=== PATIENT | female | born 1985 | race Caucasian/White ===

== ENCOUNTER 2022-05-23 09:08 | Outpatient (CLI) | payer OTHER, SELFPAY ==
[2022-05-23 12:13] LABS: Albumin* 4.3 g/dL (3.3-5.0); Chloride* 102 mmol/L (96-114); Potassium* 4.4 mmol/L (3.6-5.1); Sodium* 139 mmol/L (135-149)
[2022-05-23 12:15] LABS: Carbon Dioxide* 30 mmol/L (20-32); Cholesterol* 160 mg/dL (90-199); Creatinine* 0.8 mg/dL (0.5-1.5); Estimated Glomerular Filt Rate 98 ml/min
[2022-05-23 12:16] LABS: Alanine Aminotransferase* 16 U/L (4-35); Alkaline Phosphatase* 47 U/L (40-150); Aspartate Amino Transferase* 20 U/L (12-35); Bilirubin Total* 0.5 mg/dL (0.1-1.5); Blood Urea Nitrogen* 13 mg/dL (5-24); Calcium* 9.7 mg/dL (8.4-10.6); Glucose* 64 mg/dL (60-115); HDL Cholesterol* 61 mg/dL (>=50); LDL Cholesterol Calculated 83 mg/dL (<100); Total Protein* 6.8 g/dL (6.0-8.3); Triglycerides* 82 mg/dL (40-149)
[2022-05-23 12:34] LABS: Vitamin D 25 Hydroxy* 55 ng/mL (30-80)
[2022-05-23 12:52] LABS: Ferritin* 22.4 ng/mL (6.24-137.0)
[2022-05-24 03:04] LABS: Vitamin B12* 635 pg/mL (243-894)
== END 2022-05-23 09:09 | disposition home or self-care (01) ==
PROVIDERS: PCP Family Medicine; Visit Provider Family Medicine
DX: Z01.419 Encounter for gynecological examination (general) (routine) without abnormal findings (principal); R53.83 Other fatigue; F41.1 Generalized anxiety disorder; Z86.2 Personal history of diseases of the blood and blood-forming organs and certain disorders involving the immune mechanism; Z86.59 Personal history of other mental and behavioral disorders; Z13.6 Encounter for screening for cardiovascular disorders
CPT/HCPCS: 80053; 80061; 82306; 82607; 82728; 84443

== ENCOUNTER 2023-03-14 13:53 | Outpatient (CLI) | payer OTHER, SELFPAY | END 2023-03-14 13:54 | disposition home or self-care (01) | LOC: NFLDREF 03-20 07:47 | PROVIDERS: PCP Family Medicine; Referring Provider Family Medicine; Visit Provider Family Medicine | DX: R19.7 Diarrhea, unspecified (principal) | CPT/HCPCS: 87177; 87209; 87505 ==

== ENCOUNTER 2023-08-18 08:15 | Outpatient (CLI) | payer OTHER, SELFPAY | END 2023-08-18 08:16 | disposition home or self-care (01) | LOC: NFLDREF 08-19 16:16 | PROVIDERS: PCP Family Medicine; Referring Provider Family Medicine; Visit Provider Family Medicine | DX: Z01.419 Encounter for gynecological examination (general) (routine) without abnormal findings (principal); Z86.2 Personal history of diseases of the blood and blood-forming organs and certain disorders involving the immune mechanism; Z13.6 Encounter for screening for cardiovascular disorders | CPT/HCPCS: 80053; 80061; 82728 ==

== ENCOUNTER 2023-10-03 07:37 | Outpatient (CLI) | payer OTHER, SELFPAY ==
--- OUTSIDE RECORDS SUMMARY | 2023-10-03 07:39 | XMS_ITS | Encounter Summary ---
Author Name Unknown Organization [facility] Address [address] [address] Care Team Providers Care Linotype Worker Name Role Phone Janis Beltre MD Primary Care Provider Reason for Visit * Reason Comments Ear Pain Better today but sti ll present. Sore Throat Headache Feels feverish but h asn't registered a fever. Chills. Some coughing. Not much of a runny nose either. Symptoms started 07/31 Encounter Details Date Type Department Care Team Description 08/04/2023 9:30 AM WRECKER DRIVER Office Visit [facility] [address] [place] [id number] Bernie Harper, PAAndreC [address] [place] [id number] Pharyngitis, unspecified etiology (Primary Dx); Acute otitis media, right Social History Tobacco Use Types Packs/Day Years Used Date Smoking Tobacco: Never Smokeless Tobacco: Never Alcohol Use Standard Drinks/Week Comments No 0 (1 standard drink = 0.6 oz pur e alcohol) PHQ-2 Answer Date Recorded PHQ-2 Score 1 09/18/2022 Sex and Gender Information Value Date Recorded Sex Assigned at Not on file Gender Identity Not on file Sexual Orientation Not on file documented as of this encounter Last Filed Vital Signs Vital Sign Reading Time Taken Comments Blood Pressure 92/64 08/04/2023 9:24 AM WRECKER DRIVER Pulse 53 08/04/2023 9:24 AM WRECKER DRIVER Temperature 36.7 ??C (98.1 ??F) 08/04/2023 9:16 AM CS T Respiratory Rate - - Oxygen Saturation 100% 08/04/2023 9:16 AM WRECKER DRIVER Inhaled Oxygen Concentration - - Weight 62.6 kg (138 lb) 08/04/2023 9:26 AM WRECKER DRIVER Height - - Body Mass Index 20.09 02/27/2022 4:31 PM CDT documented in this encounter Progress Notes * Bernie Harper PA-C - 08/04/2023 9:30 AM CST Clinic Visit SUBJECTIVE: CC: Chief Complaint Patient presents with Ear Pain Better today but still present. Sore Throat Headache Feels feverish but hasn't registered a fever. Chills. Some coughing. Not much of a runny nose either. Symptoms started 07/31 History of Present Illness: Michelle is here on day 5 of URI sxs. No temps but has felt feverish. Worse sxs are ST, headache, fatigue, chills. ST is relatively unchanged but feels the best today as it has during the illness. Has minimal congestion, no significant postnasal drainage. Had significant right ear pain last night but this has improved today. Home COVID negative yesterday. No known strep/COVID exposure. Review of Systems: A complete ROS was reviewed and found to be negative except as noted above. OBJECTIVE: Vital Signs: BP 92/64 (BP Location: Left Arm, BP Cuff Size: Regular - Long) Pulse (!) 53 Temp 98.1 ??F (36.7 ??C) (Oral) Wt 138 lb (62.6 kg) SpO2 100% BMI 20.09 kg/m?? General: pleasant in NAD. HEENT:PERRLA, EOM intact. Left TM and canal are clear. Right canal is clear. Right canal is erythematous. Oropharynx is clear. Neck: Supple, no lymphadenopathy or thyromegaly Lungs: clear to auscultation bilaterally with no crackles or wheezing. CV:RRR, no murmurs, rubs or gallops. Skin: Warm and dry without lesions. Psych:well dressed and groomed, thoughts are linear, affect is normal. Labs: Cinthya was seen today for ear pain, sore throat and headache. Diagnoses and all orders for this visit: Pharyngitis, unspecified etiology - STREP GROUP A, Molecular Detection-Collect Now in current encounter - 2019 Novel Coronavirus (COVID-19); Future - 2019 Novel Coronavirus (COVID-19) Acute otitis media, right Other orders - amoxicillin-clavulanate (AUGMENTIN) 875-125 mg per tablet; Take 1 Tablet by mouth two times a dayfor 7 days. Swabs done as above. Did discuss exam findings with erythematous right TM. Given her pain is bettertoday she is going to hold off on antibiotics but I did print a prescription for Augmentin in the event things would worsen. She could then fill the prescription. She will follow-up if anything wouldworsen. This note was created using voice recognition software and may contain typographical errors. *SH~[id number]~SOAP1 KER DRIVER documented in this encounter Plan of Treatment Upcoming Encounters Date Type Department Care Team Description 10/21/2023 10:30 AM WRECKER DRIVER Appointment [facility] Neurology [address] [place] [address] Theodora Contreras, LEAD MACHINIST, HOSTESS HOST [address] [place], [place] [id number] documented as of this encounter Procedures Procedure Name Priority Date/Time Associated Diagnosis Comments STREP GROUP A, MOLECULAR DETECTION Waiting 08/04/2023 10:03 AM WRECKER DRIVER Pharyngitis, unspecified etiology 2019 NOVEL CORONAVIRUS Routine 08/04/2023 10:03 AM WRECKER DRIVER Pharyngitis, unspecified etiology documented in this encounter Results * 2019 Novel Coronavirus (COVID-19) (08/04/2023 10:03 AM WRECKER DRIVER) COVID-19 Interpretation Not Detected Not Detected 08/05/2023 2:51 AM WRECKER DRIVER [facility] Source Nares, left and right 08/05/2023 2:51 AM [facility] Swab (Source Required) Non-blood Collection / Unknown 08/04/2023 10:03 AM WRECKER DRIVER 08/04/2023 10:52 AM WRECKER DRIVER Narrative [facility] - 08/05/2023 2:51 AM WRECKER DRIVER Test performed by Electric Crane Operator Mediated Amplification. TMA has been shown to be equivalent to commercial real-time PCR tests. This test has been authorized by the FDA under Emergency Use Authorization (EUA) for use by authorized laboratories. Bernie Harper PA-C LAB_1 Performing Organization Address City/[facility]/ZIP Co de Phone Number [facility] [address] [address] [phone] * STREP GROUP A, Molecular Detection-Collect Now in current encounter (08/04/2023 10:03 AM WRECKER DRIVER) [facility] Group A Strep Not Detected Not Detected 08/04/2023 11:27 AM WRECKER DRIVER [facility] Comment:Methodology: Qualita tive real-time PCR assay Swab (Source Required) THROAT SWAB / Unknown Non-blood Collection / Unknown 08/04/2023 10:03 AM WRECKER DRIVER 08/04/2023 10:52 AM WRECKER DRIVER Bernie Harper PA-C LAB_1 Performing Organization Address City/[facility]/ZIP Co de Phone Number [facility]) [address] [place] [address], [facility] [phone] documented in this encounter Visit Diagnoses Diagnosis Pharyngitis, unspecified etiology- Primary Acute otitis media, right Unspecified otitis media documented in this encounter Care Teams Linotype Worker Relationship Specialty Start Date End Date Janis Beltre MD [address] [place] [address] PCP - General Family Practice 09/19/22 documented as of this encounter
--- OUTSIDE RECORDS SUMMARY | 2023-10-03 07:39 | XMS_ITS | Encounter Summary ---
Author Name Unknown Organization [facility] Address [address], [place] [address] Care Team Providers Care Board Mixer Tender Name Role Phone Janis Beltre MD Primary Care Provider Reason for Visit * Reason Comments EAR,PLUGGED Encounter Details Date Type Department Care Team Description 08/11/2023 Nurse Triage [facility] Nurse Line [address] [place] [address] Janis Beltre MD [address] [place], [place] [phone] EAR,PLUGGED Social History Tobacco Use Types Packs/Day Years [...] on file documented as of this encounter Nursing Notes * Britt Blackwell RN - 08/11/2023 7:52 PM CST Spoke with pt who states she was seen in clinic for ear pain and cold symptoms, completed antibiotic treatment for an ear infection, pt continue to have congestion in the ear and is having a hard time hearing from the ear. Care advise given per protocol, pt verbalized understanding. Problem list reviewed as related to this call. Reason for Disposition Ear congestion present > 48 hours Protocols used: Ear - [id number] ORACLE DEVELOPER documented in this encounter Plan of Treatment Upcoming Encounters Date Type Department Care Team Description 10/21/2023 10:30 AM JAVA ORACLE DEVELOPER Appointment [facility] Neurology [address] [place], [place] [phone] Theodora Contreras, VACUUM APPLICATOR OPERATOR, BOILER REPAIR SUPERVISOR [address] [place] [address] documented as of this encounter Visit Diagnoses Not on filedocumented in this encounter Care Teams Board Mixer Tender Relationship Specialty Start Date End Date Janis Beltre MD [address] [place] [address] PCP - General Family Practice 09/19/22 documented as of this encounter
--- OUTSIDE RECORDS SUMMARY | 2023-10-03 07:39 | XMS_ITS | Encounter Summary ---
Author Name Unknown Organization [facility] Address [address] [place] [address] Care Team Providers Care Chief Librarian Music Department Name Role Phone Janis Beltre MD Primary Care Provider Reason for Visit * Reason Comments Ear Pain Encounter Details Date Type Department Care Team Description 08/03/2023 Nurse Triage [facility] [address] [place], [place] [phone] Unassigned, Provider [address] [place] [address] Ear Pain Social History Tobacco Use Types Packs/Day Years [...] as of this encounter Nursing Notes * Marylou Wilder RN - 08/03/2023 4:08 PM CST Verified patient identity: Yes Situation/Background (brief explanation of current symptoms/situation): Michelle states she wants to know if she could go in to be seen. States she has started to have ear pain and read that if you develop ear pain with uri symptoms that you should be seen. She has ear pain ,sore throat, she has had chills, feels feverish , no fever and low grade headache . Nose not runny, but is a little stuffy. Sore throat kind of at the top and last night felt ear needed to pop, not bad today , but ringing and kind of hurts when she hiccups. She is able to hear from the ear and hearing is diminshed.No drainagefrom ear. She denies difficulty breathing, has a mild cough. Michelle states home covid test has been ne gative. Reviewed with patient pertinent medical history (as it related to the call): Yes Reviewed with patient pertinent medications (as they relate to call): Yes Reviewed with patient pertinent allergies (as they relate to call): Yes Reason for Disposition Earache Answer Assessment - Initial Assessment Questions 1. DESCRIPTION: What type of hearing problem are you having? Describe it for me. (e.g., complete hearing loss, partial loss) Ear pain, diminished hearing 2. LOCATION: One or both ears? If one, ask: Which ear? One ear 3. SEVERITY: Can you hear anything? If Yes, ask: What can you hear? (e.g., ticking watch, whisper, talking) - MILD: Difficulty hearing soft speech, quiet library sounds, or speech from a distance or over background noise. - MODERATE: Difficulty hearing normal speech even at closed distances. - SEVERE: Unable to hear most normal conversation and talking; only able to hear loud sounds such as an alarm clock. 4. ONSET: When did this begin? Did it start suddenly or come on gradually? yesterday 5. PATTERN: Does this come and go, or has it been constant since it started? 6. PAIN: Is there any pain in your ear(s)? (Scale 1-10; or mild, moderate, severe) - NONE (0): no pain - MILD (1-3): doesn't interfere with normal activities - MODERATE (4-7): interferes with normal activities or awakens from sleep - SEVERE (8-10): excruciating pain, unable to do any normal activities moderate 7. CAUSE: What do you think is causing this hearing problem? 8. OTHER SYMPTOMS: Do you have any other symptoms? (e.g., dizziness, ringing in ears) Ringing in ears, stuffy nose, sore throat 9. : Is there any chance you are ? When was your last menstrual period? Answer Assessment - Initial Assessment Questions 1. COVID-19 DIAGNOSIS: How do you know that you have COVID? (e.g., positive lab test or self-test, diagnosed by doctor or ELECTRONIC GAMING DEVICE SUPERVISOR/PA, symptoms after exposure). Home test negative 2. COVID-19 EXPOSURE: Was there any known exposure to COVID before the symptoms began? [facility] Definition of close contact: within 6 feet (2 meters) for a total of 15 minutes or more over a 24-hour period. None known 3. ONSET: When did the COVID-19 symptoms start? 4 days ago 4. WORST SYMPTOM: What is your worst symptom? (e.g., cough, fever, shortness of breath, muscle aches) Stuffy nose, sore throat and ear pain 5. COUGH: Do you have a cough? If Yes, ask: How bad is the cough? mild 6. FEVER: Do you have a fever? If Yes, ask: What is your temperature, how was it measured, and when did it start? Denies fever, has had chills 7. RESPIRATORY STATUS: Describe your breathing? (e.g., normal; shortness of breath, wheezing, unable to speak) No difficulty breathing 8. [id number]: Are you getting better, staying the same or getting worse compared to yesterday? If getting worse, ask, In what way? 9. OTHER SYMPTOMS: Do you have any other symptoms? (e.g., chills, fatigue, headache, loss of smell or taste, muscle pain, sore throat) Headache, sore throat, ear pain with diminished hearing 10. HIGH RISK DISEASE: Do you have any chronic medical problems? (e.g., asthma, heart or lung disease, weak immune system, obesity, etc.) no 11. VACCINE: Have you had the COVID-19 vaccine? If Yes, ask: Which one, how many shots, when didyou get it? 12. : Is there any chance you are ? When was your last menstrual period? 13. O2 SATURATION MONITOR: Do you use an oxygen saturation monitor (pulse oximeter) at home? If Yes, ask What is your reading (oxygen level) today? What is your usual oxygen saturation reading?(e.g., 95%) Protocols used: Coronavirus (COVID-19) Diagnosed or [id number], Hearing Loss or [id number] LER * Zraa Armando - 08/03/2023 4:06 PM CST Verified patient identity using three identifiers: Yes Caller's relationship to patient: Self, Do you have a provider/clinic where you are seen for this? [facility] [place]/Gi/Gisele/Terry Are you calling about a /POOL CLEANER related concern? No Symptoms Describe the reason for call/symptoms (include location and duration if applicable): feels feverish- sore throat - ear pain - congestion - headache Plan:The current callback time to speak with a nurse is 60. If your symptoms change or worsen, or if you have not received a call back in the stated timeframe, please call us back LER documented in this encounter Plan of Treatment Upcoming Encounters Date Type Department Care Team Description 10/21/2023 10:30 AM RUFFLER Appointment [facility] Neurology [address] [place] [address] Theodora Contreras, GAMBLING FLOOR SUPERVISOR, CONSULTING DATABASE ADMINISTRATOR [address] [place] [address] documented as of this encounter Visit Diagnoses Not on filedocumented in this encounter Care Teams Chief Librarian Music Department Relationship Specialty Start Date End Date Janis Beltre MD [address] [place] [address] PCP - General Family Practice 09/19/22 documented as of this encounter
--- OUTSIDE RECORDS SUMMARY | 2023-10-03 07:39 | XMS_ITS | Encounter Summary ---
Author Name Unknown Organization [facility] Address [address], [place] [address] Care Team Providers Care Principal Statistical Programmer Name Role Phone Janis Beltre MD Primary Care Provider Reason for Visit * Reason Comments EAR,PLUGGED R Encounter Details Date Type Department Care Team Description 08/12/2023 3:00 PM PHYSICAL THERAPIST ASSISTANT Office Visit [facility] Medicine [facility] [place], [place] [id number] Jah Alonzo, PACarlos [address] [place] [address] Recurrent acute suppurative otitis media of right ear without spontaneous rupture of tympanic membrane (Primary Dx) Social History Tobacco Use Types Packs/Day Years [...] Sign Reading Time Taken Comments Blood Pressure 93/60 08/12/2023 3:04 PM PHYSICAL THERAPIST ASSISTANT Pulse - - Temperature - - Respiratory Rate - - Oxygen Saturation - - Inhaled Oxygen Concentration - - Weight 63.5 kg (140 lb) 08/12/2023 3:04 PM PHYSICAL THERAPIST ASSISTANT Height 177.8 cm (5' 10) 08/12/2023 3:04 PM PHYSICAL THERAPIST ASSISTANT Body Mass Index 20.09 08/12/2023 3:04 PM PHYSICAL THERAPIST ASSISTANT documented in this encounter Progress Notes * Jah Alonzo PA-C - 08/12/2023 3:00 PM CST Subjective: Patient ID: Cinthya Wilder is a 38 y.o. female. Chief Complaint: The patient is a 38-year-old female who presents today in follow-up of an upper respiratory infection. She was seen on 08/04 by my colleague. At that time strep testing and COVID testing was negative. She did complain of some right ear pain and was given a pocket prescription for Augmentin to be used if the ear pain worsened which it did.. She completed a full week's worth of Augmentin. She is still having muffled hearing and mild discomfort in the right ear. The sore throat and other upper respiratory symptoms have largely resolved. Review of Systems All other systems reviewed and are negative. Objective: Physical Exam Constitutional: Appearance: She is not ill-appearing or toxic-appearing. HENT: Head: Normocephalic and atraumatic. Right Ear: Ear canal normal. Left Ear: Tympanic membrane and ear canal normal. Ears: Comments: The right TM is dull and erythematous no perforation is identified Mouth/Throat: Mouth: Mucous membranes are moist. Pharynx: Oropharynx is clear. No oropharyngeal exudate or posterior oropharyngeal erythema. Neurological: Mental Status: She is alert. Assessment: ICD-10-CM 1. Recurrent acute suppurative otitis media of right ear without spontaneous rupture of tympanic membrane H66.004 cefdinir (OMNICEF) 300 MG capsule Plan: Discussed the patient's condition and with ongoing symptoms despite treatment with 1 week of Augmentin will treat with a full 10 day course of cefdinir. Encouraged her to use probiotics when on antibiotics. Indications for follow-up reviewed. Discussed Eustachian tube clearing techniques. Follow upp.r.n. ICAL THERAPIST ASSISTANT documented in this encounter Plan of Treatment Upcoming Encounters Date Type Department Care Team Description 10/21/2023 10:30 AM PHYSICAL THERAPIST ASSISTANT Appointment [facility] Neurology [address] [place] [address]. [place] [address] Theodora Contreras, SECURITY FIELD SUPERVISOR, PSYCHOLOGICAL OPERATIONS [address] [place] [address] documented as of this encounter Visit Diagnoses Diagnosis Recurrent acute suppurative otitis media of right ear without spontaneous rupture of tympanic membrane- Primary documented in this encounter Care Teams Principal Statistical Programmer Relationship Specialty Start Date End Date Janis Beltre MD [address] [place] [address] PCP - General Family Practice 09/19/22 documented as of this encounter
--- OUTSIDE RECORDS SUMMARY | 2023-10-03 07:39 | XMS_ITS | Clinical Summary ---
Author Name Unknown Organization [facility] Address [address] [place] [address] Care Team Providers Care Pedigree Researcher Name Role Phone Janis Beltre MD Primary Care Provider Source Comments You are receiving this document as you are listed as the primary care provider,follow-up provider, or the patient has been referred to you for consultation.This is in compliance with the Medicare andOhio[facility] Medical Centercasd EHR Incentive Program,which states Providers who transition their patient to another setting of careor provider of care or refers their patient to another provider of care shouldprovide summary care record for each transition of care or referral. [facility] Allergies No known active allergies Medications Medication Sig Dispensed Refills Start Date End Date Status B Complex Vitamins (B COMPLEX OR) daily. 0 Active cholecalciferol (VITAMIN D3) 50 MCG (2000 UT) capsule Take 1 Capsule (2,000 Units) by mouth daily. 0 Active ferrous gluconate 324 (37.5 FE) MG tablet Take 1 Tablet (324 mg) by mouth daily. 0 07/27/2007 Active dapsone (ACZONE) 5 % gel Apply topically daily at bedtime. 60 g 11 05/10/2021 Active Additional Information Patient not taking.Reported on 08/04/2023 clindamycin (CLEOCIN T) 1 % lotion Apply topically daily. 60 mL 11 05/10/2021 Active Additional Information Patient not taking.Reported on 08/04/2023 citalopram (CELEXA) 40 MG tablet Take 1 Tablet (40 mg) by mouth daily. 90 Tablet 3 02/27/2022 Active Additional Information Patient taking differently:40 mg Oral DAILY,She reports on 05/02/2022 taking .75 tablets of a 40mg dose., Reported on 03/20/2023 magnesium oxide (AKA MAG-OX 400) 250 MG tablet daily with breakfast. 0 Active Riboflavin (B-2-400 OR) 1 a day 0 Active [place]-3 Fatty Acids (FISH OIL) 1200 MG capsule Take 1 Capsule (1,200 mg) by mouth. She takes 2 caps once a day 0 Active ibuprofen (MOTRIN) 200 MG tablet 2 at onset of headache with Sumatriptan 0 Active SUMAtriptan (IMITREX) 100 MG tablet TAKE 1 TABLET (100 MG) BY MOUTH NEEDED FOR MIGRAINE. AT ONSET OF HEADACHE MAY REPEAT ONE TIME IN 2 HOURS IF HEADACHE RECURS. 9 Tablet 1 05/26/2023 Active divalproex (DEPAKOTE ER) 500 MG 24 hour release tablet 2 tabs orally once a day (at the same time) for headache prevention. 180 Tablet 1 06/12/2023 Active Active Problems Problem Noted Date Diagnosed Date Moderate episode of recurrent major depressive d isorder 02/27/2022 Generalized anxiety disorder 01/10/2015 Overview: Generalized anxiety disorder (ACG) Migraine with visual aura 05/24/2014 Resolved Problems Problem Noted Date Diagnosed Date Resolved Date IUD (intrauterine device) in place 07/10/2017 11/17/2020 Overview: ny 2014 Secondary amenorrhea 03/11/2017 020 Major depressive disorder, r ecurrent, moderate 09/04/2016 01/05/2020 Depression, major, in remission 03/15/2016 08/22/2016 Mild episode of recurrent ma dru depressive disorder 01/04/2016 03/15/2016 Screening for malignant neoplasm of cervix 03/31/2015 03/12/2022 Overview: 2010 NILM 2014 NILM Plan: Pap test 03/2018 ICD 10 Bradycardia 12/12/2014 01/05/2020 Eating disorder 03/09/2009 07/31/2011 Panic disorder without agoraphobia 03/09/2009 07/31/2011 Major depressive disorder, r ecurrent episode, in partial remission 03/09/2009 01/04/2016 Overview: Major depressive disorder, recurrent episode, in partial or unspecified remission Chronic pain syndrome 03/13/20072010 Other specified eating disorder 01/05/2020 Major depressive disorder, s kacy episode, mild 08/22/2016 Encounters Date Type Department Care Team Description 08/12/2023 3:00 PM FOUNDER AND CEO Office Visit [address] [address] Jah Alonzo PA-C Recurrent acute suppurative otitis media of right ear without spontaneous rupture of tympanic membrane (Primary Dx) 08/11/2023 Nurse Triage [facility] Nurse Line [address] [place] [address] Janis Beltre MD EAR,PLUGGED 08/04/2023 9:30 AM FOUNDER AND CEO Office Visit [address] [address] Bernie Harper PA-C Pharyngitis, unspecified etiology (Primary Dx); Acute otitis media, right 08/03/2023 Nurse Triage [facility] [address] [place], [place] [address] Unassigned, Provider Ear Pain from Last 3 Months Immunizations Name Administration Dates Next Due DTP 04/27/1992, 9,1987,1986,1987 Flu Vac (3+ yrs) 06/15/2014, 1,07/21/2003,1998 HepB Ped/Adol (0-18 yrs) 11/13/1999,05/03/1999,0 02/15/1999 Hib (HbOC) 10/29/1988 Influenza (Flucelvax) 07/02/2022,05/24/2021 Influenza (Flucelvax), Preserv Free 07/05/2015 Influenza (Flucelvax), Prese rv Free QIV 06/09/2023 Influenza IIV4 (Quadrivalent ) 0.5mL ([id number]) 06/25/2020,06/04/2016 Influenza, Unspecified Formulation 06/30/1998, MCV4 (Menactra) 02/27/2005 MMR 02/15/1999,07/08/1988 Moderna Bivalent 12+ 05/17/2022 Moderna Monovalent 12+ 08/04/2021,12/30/2020,10/2020 OPV, Trivalent (Orimune or tOPV) 992,04/01/1989,1987,1986 Pfizer 12+ 06/09/2023 Td 02/15/1999 Tdap 02/27/2022,04/12/2009 Varicella 02/15/1999(Deferred: Immune by Liliane vaca) Family History Medical History Relation Name Comments Cataract Father Hypertension Father Other Father covid with PE Thromboembolic Disease Father relat ed to covid Asthma Mother as child Cataract Mother Depression Mother Kidney Disorder Mother Alcohol Abuse Maternal Grandfather Alcohol/Drug Abuse Maternal Grandfather Hypertension Maternal Grandfather Cancer, Colon Maternal Grandmother Diabetes, Type II Maternal Uncle Cerebrovascular Disease Paternal Grandfather Coronary Artery Disease Paternal Grandfather Hypertension Paternal Grandfather Anxiety Sister Depression Sister Migraines Sister Relation Name Status Comments Father Alive Mother Alive Maternal Grandfather (Age 85) un known Maternal Grandmother (Age 55) co jaycee cancer Maternal Uncle Paternal Grandfather (Age old) u nknown Paternal Grandmother (Age young) unknown Sister Alive Social History Tobacco Use Types Packs/Day Years Used Date Smoking Tobacco: Never Smokeless Tobacco: Never Alcohol Use Standard Drinks/Week Comments No 0 (1 standard drink = 0.6 oz pur e alcohol) PHQ-2 Answer Date Recorded PHQ-2 Score 1 09/18/2022 Sex and Gender Information Value Date Recorded Sex Assigned at Not on file Gender Identity Not on file Sexual Orientation Not on file Last Filed Vital Signs Vital Sign Reading Time Taken Comments Blood Pressure 93/60 08/12/2023 3:04 PM FOUNDER AND CEO Pulse 53 08/04/2023 9:24 AM FOUNDER AND CEO Temperature 36.7 ??C (98.1 ??F) 08/04/2023 9:16 AM CS T Respiratory Rate 16 02/08/2017 3:41 PM CDT Oxygen Saturation 100% 08/04/2023 9:16 AM FOUNDER AND CEO Inhaled Oxygen Concentration - - Weight 63.5 kg (140 lb) 08/12/2023 3:04 PM FOUNDER AND CEO Height 177.8 cm (5' 10) 08/12/2023 3:04 PM FOUNDER AND CEO Body Mass Index 20.09 08/12/2023 3:04 PM FOUNDER AND CEO Plan of Treatment Upcoming Encounters Date Type Department Care Team Description 10/21/2023 10:30 AM FOUNDER AND CEO Appointment [facility] Neurology [address] [facility] [place] [address] Theodora Contreras, PEER COUNSELOR, VESSEL SPECIALIST [address] [place] [address] Health Maintenance Due Date Last Done Comments Hep C Screening (Preventive Services) 1987 HIV Screening (Preventive Services) 2003 Adult Preventive Visit 02/28/2024 , 03/24/2015, 07/31/2011, Additional history exists Cervical Cancer Screening 02/27/20272021, 03/24/2015, 08/28/2011, Additional history exists DTaP/Tdap/Td (8 - Tdap) 02/28/2032 02/28/20, 04/12/2009, 02/15/1999, Additional history exists Zoster/Shingles (1 of 2) 2037 Hib Completed 10/29/1988 IPV (Polio) Completed 04/27/1992, 09/1988, 1987, Additional history exists HepB Completed 11/13/1999, 10/1998, 02/15/1999 MCV4 Completed 02/27/2005 COVID-19 Vaccine Completed 06/09/2023, , 08/04/2021, Additional history exists Influenza Completed 06/09/2023, 09/2021, 05/24/2021, Additional history exists HPV Vaccine Aged Out No longer eligi ble based on patient's age to complete this topic HepA Aged Out No longer eligi ble based on patient's age to complete this topic Pneumococcal Aged Out No longer eligi ble based on patient's age to complete this topic Procedures Procedure Name Priority Date/Time Associated Diagnosis Comments 2019 NOVEL CORONAVIRUS Routine 08/04/2023 10:03 AM FOUNDER AND CEO Pharyngitis, unspecified etiology STREP GROUP A, MOLECULAR DETECTION Waiting 08/04/2023 10:03 AM FOUNDER AND CEO Pharyngitis, unspecified etiology from Last 3 Months Results * STREP GROUP A, Molecular Detection-Collect Now in current encounter (08/04/2023 10:03 AM FOUNDER AND CEO) Pathologist [facility] A Strep Not Detected Not Detected 08/04/2023 11:27 AM FOUNDER AND CEO [facility] ([facility]) Comment:Methodology: Qualita tive real-time PCR assay Swab (Source Required) THROAT SWAB / Unknown Non-blood Collection / Unknown 08/04/2023 10:03 AM FOUNDER AND CEO 08/04/2023 10:52 AM FOUNDER AND CEO Bernie Harper PA-C LAB_1 Performing Organization Address [facility]/ZIP Co de Phone Number [facility] ([facility]) [address] [place] [phone] [phone] * 2019 Novel Coronavirus (COVID-19) (08/04/2023 10:03 AM FOUNDER AND CEO) [facility] COVID-19 Interpretation Not Detected Not Detected 08/05/2023 2:51 AM FOUNDER AND CEO [employer] CENTRAL [facility] Source Nares, left and right 08/05/2023 2:51 AM FOUNDER AND CEO [facility] [place] [facility] Swab (Source Required) Non-blood Collection / Unknown 08/04/2023 10:03 AM FOUNDER AND CEO 08/04/2023 10:52 AM FOUNDER AND CEO Narrative [facility] [place] [facility] - 08/05/2023 2:51 AM FOUNDER AND CEO Test performed by Type Inspector Mediated Amplification. TMA has been shown to be equivalent to commercial real-time PCR tests. This test has been authorized by the FDA under Emergency Use Authorization (EUA) for use by authorized laboratories. Bernie Harper PA-C LAB_1 Performing Organization Address City/[facility]/ZIP Co de Phone Number [facility] [address] [address], [facility] [phone] from Last 3 Months Care Teams Pedigree Researcher Relationship Specialty Start Date End Date Janis Beltre MD [address] [place] [address] PCP - General Family Practice 09/19/22
--- OUTSIDE RECORDS SUMMARY | 2023-10-03 07:40 | XMS_ITS | Encounter Summary ---
Author Name Unknown Organization [facility] Address [address] [place] [address] Care Team Providers Care Pantograph Setter Name Role Phone Janis Beltre MD Primary Care Provider Reason for Visit * Reason Comments LOOSE STOOLS Encounter Details Date Type Department Care Team Description 03/11/2023 Nurse Triage [facility] [address] [place], [place] [address] Unassigned, Provider [address] [place] [address] LOOSE STOOLS Social History Tobacco Use Types Packs/Day Years [...] as of this encounter Nursing Notes * Rosalind Morel RN - 03/11/2023 12:22 PM CDT Verified patient identity: Yes Situation/Background (brief explanation of current symptoms/situation): Pt has loose stool and she was just camping in [place]. This morning, 03/11/2023, has had many stools today. The past few days, just been pooping more. Today was the first day of them being loose. No blood or mucous in poop. Pt is feeling better after the stools, but prior was queasy and tired. They did use a pump water filtration from camping. Pt is staying hydrated, urinating well. Reviewed with patient pertinent medical history (as it related to the call): N/A Reviewed with patient pertinent medications (as they relate to call): N/A Reviewed with patient pertinent allergies (as they relate to call): N/A Reason for Disposition MILD-MODERATE diarrhea (e.g., 1-6 times / day more than normal) Protocols used: [id number] Plan: home care discussed. Advised patient/caller to call back CareLine if there are further questions or concerns or to be seen if situation becomes emergent. The CareLine is available 24/03. Rosalind Ackerman RN Careline 12:37 PM 03/11/2023 * [place] Antoine - 03/11/2023 12:19 PM CDT Verified patient identity using three identifiers: Yes Caller's relationship to patient: Self Do you get your primary care at a [facility] or [facility] clinic: No/Other Other (Clinic Name)[facility] Select Member: No Are you calling about a positive COVID result: No Symptoms Describe the reason for call/symptoms (include location and duration if applicable): Pt has loose stool and she was just camping in [facility] Plan:The current callback time to speak with a nurse is 1 hr. If your symptoms change or worsen, orif you have not received a call back in the stated timeframe, please call us back documented in this encounter Plan of Treatment Upcoming Encounters Date Type Department Care Team Description 10/21/2023 10:30 AM SHAREPOINT APPLICATION ARCHITECT Appointment [facility] Neurology [address] [facility]. [place], [place] [phone] Theodora Contreras, LAMP SHADE MAKER, YARN DUMPER [address] [place], [place] [phone] documented as of this encounter Visit Diagnoses Not on filedocumented in this encounter Care Teams Pantograph Setter Relationship Specialty Start Date End Date Janis Beltre MD [address] [place] [address] PCP - General Family Practice 09/19/22 documented as of this encounter
--- OUTSIDE RECORDS SUMMARY | 2023-10-03 07:40 | XMS_ITS | Encounter Summary ---
Author Name Unknown Organization [facility] Address [address], [place] [address] Care Team Providers Care Manager Car Name Role Phone Janis Beltre MD Primary Care Provider Reason for Visit * Reason Comments Refill Depakote ER Encounter Details Date Type Department Care Team Description 06/12/2023 Refill [facility] Neurology [address] [facility] [place] [address] Laurent Contreras APRN, ARABELLA [address] [place], [place] [phone] Refill (Depakote ER) Social History Tobacco Use Types Packs/Day Years [...] as of this encounter Nursing Notes * Laurent Contreras APRN, CNP - 06/12/2023 1:56 PM CDT Depakote ER refilled at 1:56 PM on 06/12/2023. Laurent Contreras APRN, CNP * Interface, Out [employer] Prov Query - 06/12/2023 1:00 PM CDT divalproex (DEPAKOTE ER) 500 MG 24 hour release tablet [Pharmacy Med Name: DIVALPROEX EXTENDED RELEASE 500MG T] Miscellaneous - 12 Month Visit 5 -> A qualifying visit was not found within the last 2 years. Last qualifying visit: None Next scheduled visit: None Last ordered by LAURENT CONTRERAS: 04/24/2023 (49 days ago) QTY: 60, Refills: 0, Sig: take 2 tablets bymouth every day for headache prevention (unchanged) ALT: 23 U/L on 03/20/2023 CBC: Completed on 03/20/2023 Valproic Acid (serum): 81 mcg/mL on 03/20/[address] [employer] ([employer]) Embedded Refills, Reference: [id number], 06/12/2023 1:00:21 PM CDT, Pool: [facility]LL RN ([id number]) * Interface, Out [employer] Prov Query - 06/12/2023 1:00 PM CDT The following lab order(s) may be associated with the Result Note below: ALT (SGPT); VALPROIC ACID (DEPAKENE) Notes recorded by Laurent Contreras on 03/21/2023 at 7:00 AM CDT She will be informed via letter of results given she has not viewed the result note sent to her Laurent Contreras APRN, CNP ------ Notes recorded by Laurent Contreras on 03/20/2023 at 2:37 PM CDT She will be informed via online patient services of results. Laurent Contreras APRN, CNP * Interface, Out [employer]cript[employer] Prov Query - 06/12/2023 1:00 PM CDT The following lab order(s) may be associated with the following Patient Result Comment (Entered by Laurent Contreras APRN, CNP at 03/20/2023 2:37 PM): VALPROIC ACID (DEPAKENE) Michelle - your laboratory studies from 03/20/2023 done for monitoring Depakote ER look fine.Work on taking a break by looking away and stretching your neck every 30 minutes when you are on the computer and let us know if you are having any difficulty managing your headaches before we meet again in October.Laurent Contreras APRN, CNP Electronically signed by Interface, Out [employer]star[employer]Guang Lian Shi Dai Prov Query at 06/12/2023 1:56 PM CDT * Interface, Out Surescripts Prov Query - 06/12/2023 1:00 PM CDT The following lab order(s) may be associated with the following Patient Result Comment (Entered by Laurent Contreras APRN, CNP at 03/20/2023 2:37 PM): ALT (SGPT) Michelle - your laboratory studies from 03/20/2023 done for monitoring Depakote ER look fine.Work on taking a break by looking away and stretching your neck every 30 minutes when you are on the computer and let us know if you are having any difficulty managing your headaches before we meet again in October.Laurent Contreras APRN, CNP Electronically signed by Interface, Out [employer]star[employer]Guang Lian Shi Dai Prov Query at 06/12/2023 1:56 PM CDT documented in this encounter Plan of Treatment Upcoming Encounters Date Type Department Care Team Description 10/21/2023 10:30 AM BRIAR WOOD SORTER Appointment [facility] Neurology [address] [facility] [place] [address] Laurent Contreras, MANAGER DIGITAL AD OPERATIONS, WOOD SHOP TEACHER [address] [place] [address] documented as of this encounter Visit Diagnoses Not on filedocumented in this encounter Care Teams Manager Car Relationship Specialty Start Date End Date Janis Beltre MD [address] [place] [address] PCP - General Family Practice 09/19/22 documented as of this encounter
--- OUTSIDE RECORDS SUMMARY | 2023-10-03 07:40 | XMS_ITS | Encounter Summary ---
Author Name Unknown Organization [facility] Address [address] [place] [address] Care Team Providers Care Metal Fabricator Apprentice Name Role Phone Janis Beltre MD Primary Care Provider Reason for Visit * Reason Comments Refill divalproex (DEPAKOTE ER) 500 MG 24 hour release tablet Encounter Details Date Type Department Care Team Description 02/03/2023 Refill [facility] Neurology [address] [facility]. [place], [place] [phone] Laurent Contreras, BOTTLE LABELER, DIRECTOR OF CLINICAL TRIALS [address] [place], [place] [phone] Refill (divalproex (DEPAKOTE ER) 500 MG 24 hour release tablet) Social History Tobacco Use Types Packs/Day Years [...] as of this encounter Nursing Notes * Halima Gonsales, RN - 02/03/2023 3:20 PM CDT Chart reviewed, Depakote refilled per standing order, patient has revisit scheduled 03/20/2023. Halima Gonsales RN * Interface, Out [employer] Prov Query - 02/03/2023 2:47 PM CDT divalproex (DEPAKOTE ER) 500 MG 24 hour release tablet [Pharmacy Med Name: DIVALPROEX EXTENDED RELEASE 500MG T] Miscellaneous - 12 Month Visit 5 -> Valproic Acid (serum) was not found within the last 5 years. Last qualifying visit: 09/19/2022 (with LAURENT CONTRERAS) Next scheduled visit: 03/20/2023 (with LAURENT CONTRERAS) Last ordered by LAURENT CONTRERAS: 06/21/2022 (227 days ago) QTY: 180, Refills: 1, Si tablets orally once a day for headache prevention (changed but equivalent) ALT: 16 U/L on 05/02/2022 CBC: Completed on 05/02/2022 Valproic Acid (serum): Not found [employer] Embedded Refills, Reference: [id number], 02/03/2023 2:47:32 PM CDT, Pool: [facility] NEURO REFILL RN ([id number]) * Interface, Out [employer] Prov Query - 02/03/2023 2:47 PM CDT The following lab order(s) may be associated with the Result Note below: ALT (SGPT) Notes recorded by Laurent Contreras on 05/03/2022 at 12:25 PM CDT She will be informed via online patient services of results and started on Depakote ER. Laurent Contreras APRN, CNP ------ Notes recorded by Laurent Contreras on 05/03/2022 at 6:46 AM CDT Labs reviewed. Ammonia level still in process as of 6:46 AM. * Interface, Out [employer] Prov Query - 02/03/2023 2:47 PM CDT The following lab order(s) may be associated with the following Patient Result Comment (Entered by Laurent Contreras APRN, CNP at 05/03/2022 12:25 PM): ALT (SGPT) Michelle- your labs from 05-02-22 look fine and it is all right for you to start Depakote ER. Take the Depakote ER as follows: 1 tab orally once a day for 1 week then 2 tabs orally once a day (at the same time) for headache prevention. Please get follow-up lab work done between May 17 and 2021. Please let us know where you would want those lab orders faxed to or I can put an order into the computer system so t [facility] will have a record of what tests are to be done. Please [phone] to schedule a lab visit to have your blood drawn. Please contact us on 05-30-22 with anupdate about how you are doing with your headache management and the side effects to Depakote ER. Please contact us sooner with any problems.Your prescription was sent to [id number] - [place], [place] - [facility] [address] [facility] [address] Contreras APRN, CNP documented in this encounter Plan of Treatment Upcoming Encounters Date Type Department Care Team Description 10/21/2023 10:30 AM SUPERVISOR URANIUM PROCESSING Appointment [facility] Neurology [address] [facility] [place] [address] Laurent Contreras, BOTTLE LABELER, DIRECTOR OF CLINICAL TRIALS [address] [place] [address] documented as of this encounter Visit Diagnoses Not on filedocumented in this encounter Care Teams Metal Fabricator Apprentice Relationship Specialty Start Date End Date Janis Beltre MD [address] [place] [address] PCP - General Family Practice 09/19/22 documented as of this encounter
--- OUTSIDE RECORDS SUMMARY | 2023-10-03 07:40 | XMS_ITS | Encounter Summary ---
Author Name Unknown Organization [facility] Address [address], [place] [address] Care Team Providers Care Security Officers And Guards Name Role Phone Janis Beltre MD Primary Care Provider Reason for Visit * Reason Comments Future Appointments Pt wants to change t o VIDEO VISIT Encounter Details Date Type Department Care Team Description 09/18/2022 Telephone [facility] Neurology [address] [facility]. [place], [place] [phone] Theodora Contreras, DIRECTOR OF STATE, TABLE MACHINE OPERATOR [address] [place], [place] [phone] Future Appointments (Pt wants to change to VIDEO VISIT) Social History Tobacco Use Types Packs/Day Years [...] as of this encounter Nursing Notes * Jaden Kahn - 09/19/2022 8:29 AM CST CA attempted to reach patient. LM regarding changing appt to video and pt should call back to confirm this, thank you. Jaden Kahn 09/19/2022, 8:30 AM XER * Theodora Contreras APRN, CNP - 09/19/2022 8:14 AM CST I verbally requested a CA contact Cinthya Wilder re: the message below from 09-18-22 at 12:15 PM. Theodora Contreras APRN, CNP XER * Theodora Contreras APRN, CNP - 09/18/2022 12:15 PM CST VIDEO visit is fine. Review with her: It is important to be in a quiet, private space that is free of distractions (including cell phone or other devices such as TV) during the video visit. You can not be driving during a video visit and please do not be sitting in your car for our visit. In order to be able to do an exam during the video visit we would need a space of at least 7 feet. Please be certain you are in this type of environment for our video visit. Theodora Contreras APRN, CNP XER * Dc Galindo - 09/18/2022 11:51 AM CST Pt is calling to see if she can change her appt tomorrow to a vv or phone visit due to the possiblesnow tomorrow please advise Dc Galindo 09/18/2022, 11:52 AM XER documented in this encounter Plan of Treatment Upcoming Encounters Date Type Department Care Team Description 10/21/2023 10:30 AM INDEXER Appointment [facility] Neurology [address] [facility] [place] [address] Theodora Contreras APRN, ARABELLA [address] [place] [address] documented as of this encounter Visit Diagnoses Not on filedocumented in this encounter Care Teams Security Officers And Guards Relationship Specialty Start Date End Date Janis Beltre MD [address] [place] [address] PCP - General Family Practice 09/19/22 documented as of this encounter
--- OUTSIDE RECORDS SUMMARY | 2023-10-03 07:40 | XMS_ITS | Encounter Summary ---
Author Name Unknown Organization [facility] Address [address], [place] [address] Care Team Providers Care Assembly Inspector Helper Name Role Phone Janis Beltre MD Primary Care Provider Encounter Details Date Type Department Care Team Description 06/03/1996 Orders Only Sarbjit Adame MD Social History Tobacco Use Types Packs/Day Years Used Date Smoking Tobacco: Never Assessed Sex and Gender Information Value Date Recorded Sex Assigned at Not on file Gender Identity Not on file Sexual Orientation Not on file documented as of this encounter Plan of Treatment Upcoming Encounters Date Type Department Care Team Description 10/21/2023 10:30 AM LOCK OPERATOR Appointment [facility] Neurology [address] [place] [address] Theodora Contreras, PERSONAL SECRETARY, SIZE ROLLER OPERATOR [address] [place], [place] [phone] documented as of this encounter Visit Diagnoses Not on filedocumented in this encounter Additional Health Concerns Infection Onset Date Last Indicated Resolved Time R/O COVID19 08/04/2023 08/04/2023 08/05/2023 2:51 AM LOCK OPERATOR documented as of this encounter Care Teams Assembly Inspector Helper Relationship Specialty Start Date End Date Janis Beltre MD [address] [place] [address] PCP - General Family Practice 1/19/23 documented as of this encounter
--- OUTSIDE RECORDS SUMMARY | 2023-10-03 07:40 | XMS_ITS | Encounter Summary ---
Author Name Unknown Organization [facility] Address [address] [place] [address] Care Team Providers Care Claims Associate Name Role Phone Janis Beltre MD Primary Care Provider Encounter Details Date Type Department Care Team Description 03/20/2023 11:10 AM CDT Lab Visit [facility] Laboratory [address] [place], [place] [phone] Encounter for long-term (current) use of medications Social History Tobacco Use Types Packs/Day Years [...] Department Care Team Description 10/21/2023 10:30 AM NURSE OB Appointment [facility] Neurology [address] [facility] [place] [address] Theodora Contreras, VETERANS' COORDINATOR, CHANNEL BUSINESS MANAGER [address] [place] [address] documented as of this encounter Procedures Procedure Name Priority Date/Time Associated Diagnosis Comments CBC AND DIFFERENTIAL PANEL Routine 03/20/2023 11:26 AM CDT Encounter for long-term (current) use of medications COMPLETE BLOOD COUNT-W/DIFF Routine 03/20/2023 11:26 AM CDT Encounter for long-term (current) use of medications VALPROIC ACID (DEPAKENE) Routine 03/20/2023 11:26 AM CDT Encounter for long-term (current) use of medications AMMONIA Routine 03/20/2023 11:26 AM CDT Encounter for long-term (current) use of medications ALT (SGPT) Routine 03/20/2023 11:26 AM CDT Encounter for long-term (current) use of medications AST Routine 03/20/2023 11:26 AM CDT Encounter for long-term (current) use of medications documented in this encounter Results * (ABNORMAL) Complete Blood Count-W/Diff (03/20/2023 11:26 AM CDT) WBC 4.9 3.5 - 10.5 x10(9)/L 03/20/2023 1:25 PM T [facility] RBC 4.52 3.90 - 5.03 x10(12)/L 03/20/2023 1:25 PM [facility] Hemoglobin 13.8 12.0 - 15.5 g/dL 03/20/2023 1:25 PM [facility] HCT 41.3 34.9 - 44.5 % 03/20/2023 1:25 PM [facility] MCV 91.4 80.0 - 100.0 fL 03/20/2023 1:25 PM [facility] MCH 30.5 27.6 - 33.3 pg 03/20/2023 1:25 PM T [facility] MCHC 33.4 31.5 - 35.2 g/dL 03/20/2023 1:25 PM [facility] RDW 11.4(L) 11.9 - 15.5 % 03/20/2023 1:25 PM [facility] Platelets 192 150 - 450 x10(9)/L 03/20/2023 1:25 PM T [facility] Automated NRBC 0 <=0 /100 WBC 03/20/2023 1:25 PM T [facility] Neutrophil Absolute 2.1 1.7 - 7.0 10(9)/L 03/20/2023 1:25 PM T [facility] Lymphocyte Absolute 1.9 1.0 - 4.8 10(9)/L 03/20/2023 1:25 PM T [facility] Monocyte Absolute 0.7 0.2 - 0.9 10(9)/L 03/20/2023 1:25 PM T [facility] Eosinophil Absolute 0.1 0.0 - 0.5 10(9)/L 03/20/2023 1:25 PM T [facility] Basophil Absolute 0.1 0.0 - 0.3 10(9)/L 03/20/2023 1:25 PM T [facility] Immature Granulocyte % 0.2 0.0 - 0.5 % 03/20/2023 1:25 PM T [facility] Blood Venipuncture / Unknown 03/20/2023 11:26 AM CDT 03/20/2023 11:26 AM CDT Theodora Contreras APRN, CHANNEL BUSINESS MANAGER LAB_1 Performing Organization Address City/[facility]/ZIP Co de Phone Number [address] [phone] * Ammonia (03/20/2023 11:26 AM CDT) Pathologist [facility] Ammonia, Blood 29 18 - 72 umol/L 03/20/2023 2:14 PM CDT [facility] Blood Venipuncture / Unknown 03/20/2023 11:26 AM CDT 03/20/2023 11:26 AM CDT Theodora Contreras APRN, CHANNEL BUSINESS MANAGER LAB_1 Performing Organization Address [facility]/[place] [address], [facility] [phone] * Valproic Acid (Depakene) Level (03/20/2023 11:26 AM CDT) Pathologist [facility] Valproic Acid 81 50 - 100 mcg/mL 03/20/2023 1:31 PM CDT [facility] Blood Venipuncture / Unknown 03/20/2023 11:26 AM CDT 03/20/2023 11:26 AM CDT Theodora Sarah Ben XIE CNP LAB_1 Performing Organization Address [facility]/[place] [address], [facility] [phone] * AST (03/20/2023 11:26 AM CDT) AST (SGOT) 17 10 - 40 U/L 03/20/2023 2:[address] [facility] Blood Venipuncture / Unknown 03/20/2023 11:26 AM CDT 03/20/2023 11:26 AM CDT Theodora Sarah Ben XIE, ARABELLA LAB_1 Performing Organization Address [facility] de Phone Number [facility] [address] [place] [address], [facility] [phone] * ALT (SGPT) (03/20/2023 11:26 AM CDT) ALT (SGPT) 23 <=55 U/L 03/20/2023 2:30 PM CD[address] [facility] Blood Venipuncture / Unknown 03/20/2023 11:26 AM CDT 03/20/2023 11:26 AM CDT Theodora Sarah Ben XIE CNP LAB_1 Performing Organization Address [facility] de Phone Number [facility] [address] [place] [address], [facility] [phone] documented in this encounter Visit Diagnoses Diagnosis Encounter for long-term (current) use of medications Encounter for long-term (current) use of other medications documented in this encounter Care Teams Claims Associate Relationship Specialty Start Date End Date Janis Beltre MD [address] [place] [address] PCP - General Family Practice 09/19/22 documented as of this encounter
--- OUTSIDE RECORDS SUMMARY | 2023-10-03 07:40 | XMS_ITS | Encounter Summary ---
Author Name Unknown Organization [facility] Address [address], [place] [address] Care Team Providers Care Polymerization Kettle Operator Name Role Phone Janis Beltre MD Primary Care Provider Reason for Visit * Reason Comments Refill SUMAtriptan (IMITREX ) 100 MG tablet [Pharmacy Med Name: SUMATRIPTAN SUCC 100 MG TABLET] Encounter Details Date Type Department Care Team Description 05/25/2023 Refill [facility] Neurology [address] [facility]. [place], [place] [phone] Laurent Contreras, SASH CLAMP OPERATOR, HOISTING ENGINE OPERATOR [address] [place] [address] Refill (SUMAtriptan (IMITREX) 100 MG tablet [Pharmacy Med Name: SUMATRIPTAN SUCC 100 MG TABLET]) Social History Tobacco Use Types Packs/Day Years [...] as of this encounter Nursing Notes * Concepcion Rob RN - 05/26/2023 9:05 AM CDT Sumatriptan 100mg refilled per RN's standing order. I checked that refill is appropriate, pt is due for medication refill, and has been seen within thepast year and/or has a future appointment scheduled. Concepcion Rob RN 05/26/2023, 9:05 AM * Interface, Out Bottle Prov Query - 05/25/2023 1:04 AM CDT SUMAtriptan (IMITREX) 100 MG tablet [Pharmacy Med Name: SUMATRIPTAN SUCC 100 MG TABLET] Miscellaneous - 12 Month Visit 1 -> A qualifying visit was not found within the last 2 years. Last qualifying visit: None Next scheduled visit: None Last ordered by LAURENT CONTRERAS F: 04/24/2023 (31 days ago) QTY: 9, Refills: 0, Sig: take 1 tablet (100mg) by mouth as needed for migraine. at onset of headache; may repeat one time in 2 hours if headache recurs. (unchanged) [employer] Embedded Refills, Reference: [id number], 05/25/2023 1:04:44 AM CDT, Pool: [facility] NEURO REFILL RN ([id number]) documented in this encounter Plan of Treatment Upcoming Encounters Date Type Department Care Team Description 10/21/2023 10:30 AM SITE PHYSICIAN Appointment [facility] Neurology [address] [facility] [place] [address] Laurent Contreras, SASH CLAMP OPERATOR, HOISTING ENGINE OPERATOR [address] [place] [address] documented as of this encounter Visit Diagnoses Not on filedocumented in this encounter Care Teams Polymerization Kettle Operator Relationship Specialty Start Date End Date Janis Beltre MD [address] [place] [address] PCP - General Family Practice 09/19/22 documented as of this encounter
--- OUTSIDE RECORDS SUMMARY | 2023-10-03 07:40 | XMS_ITS | Encounter Summary ---
Author Name Unknown Organization [facility] Address [address], [place] [address] Care Team Providers Care Cardiac Cath Technician Name Role Phone Janis Beltre MD Primary Care Provider Reason for Visit * Reason Comments Refill divalproex (DEPAKOTE ER) 500 MG 24 hour release tablet [Pharmacy Med Name: DIVALPROEX EXTENDED RELEASE 500MG T] Encounter Details Date Type Department Care Team Description 06/12/2023 Refill [facility] Neurology [address] [facility] [place] [address] Laurent Contreras, CORE MACHINE TENDER, BOTANICAL TECHNICAL OFFICER [address] [place] [address] Refill (divalproex (DEPAKOTE ER) 500 MG 24 hour release tablet [Pharmacy Med Name: DIVALPROEX EXTENDED RELEASE 500MG T]) Social History Tobacco Use Types Packs/Day Years [...] as of this encounter Nursing Notes * Interface, Out Surescripts Prov Query - 06/12/2023 1:01 PM CDT divalproex (DEPAKOTE ER) 500 MG 24 hour release tablet [Pharmacy Med Name: DIVALPROEX EXTENDED RELEASE 500MG T] Miscellaneous - 12 Month Visit 5 -> A duplicate request was processed on 06/12/2023. -> A qualifying visit was not found within the last 2 years. Last qualifying visit: None Next scheduled visit: None Last ordered by LAURENT CONTRERAS: 04/24/2023 (49 days ago) QTY: 60, Refills: 0, Sig: take 2 tablets bymouth every day for headache prevention (unchanged) ALT: 23 U/L on 03/20/2023 CBC: Completed on 03/20/2023 Valproic Acid (serum): 81 mcg/mL on 03/20/2023 [employer] Embedded Refills, Reference: [id number], 06/12/2023 1:01:33 PM CDT, Pool: [facility] NEURO REFILL RN ([id number]) * Interface, Out Living Independently Group Prov Query - 06/12/2023 1:01 PM CDT The following lab order(s) may [...] services of results. Laurent Contreras APRN, CNP Electronically signed by Interface, Out [employer] Agriculture Technologypts Prov Query at 06/12/2023 1:01 PM CDT * Interface, Out Surescripts Prov Query - 06/12/2023 1:01 PM CDT The following lab order(s) may [...] meet again in October.Laurent Contreras APRN, CNP * Interface, Out Surescripts Prov Query - 06/12/2023 1:01 PM CDT The following lab order(s) may [...] meet again in October.Laurent Contreras APRN, CNP documented in this encounter Plan of Treatment Upcoming Encounters Date Type Department Care Team Description 10/21/2023 10:30 AM AUDIO ENGINEER Appointment [facility] Neurology [address] [place] [address]. [place] [address] Laurent Contreras, CORE MACHINE TENDER, BOTANICAL TECHNICAL OFFICER [address] [place], [place] [phone] documented as of this encounter Visit Diagnoses Not on filedocumented in this encounter Care Teams Cardiac Cath Technician Relationship Specialty Start Date End Date Janis Beltre MD [address] [place] [address] PCP - General Family Practice 09/19/22 documented as of this encounter
--- OUTSIDE RECORDS SUMMARY | 2023-10-03 07:40 | XMS_ITS | Encounter Summary ---
Author Name Unknown Organization [facility] Address [address], [place] [address] Care Team Providers Care Portainer Operator Name Role Phone Janis Beltre MD Primary Care Provider Encounter Details Date Type Department Care Team Description 10/24/1994 Orders Only Sarbjit Adame MD Social History Tobacco Use Types Packs/Day Years Used Date Smoking Tobacco: Never Assessed Sex and Gender Information Value Date Recorded Sex Assigned at Not on file Gender Identity Not on file Sexual Orientation Not on file documented as of this encounter Plan of Treatment Upcoming Encounters Date Type Department Care Team Description 10/21/2023 10:30 AM STEWARD/STEWARDESS SMOKE ROOM Appointment [facility] Neurology [address] [facility] [place] [address] Theodora Contreras, CHEMIST INSTRUMENTATION, REINFORCING ROD LAYER [address] [place], [place] [phone] documented as of this encounter Visit Diagnoses Not on filedocumented in this encounter Additional Health Concerns Infection Onset Date Last Indicated Resolved Time R/O COVID19 08/04/2023 08/04/2023 08/05/2023 2:51 AM STEWARD/STEWARDESS SMOKE ROOM documented as of this encounter Care Teams Portainer Operator Relationship Specialty Start Date End Date Janis Beltre MD [address] [place] [address] PCP - General Family Practice 1/19/23 documented as of this encounter
--- OUTSIDE RECORDS SUMMARY | 2023-10-03 07:40 | XMS_ITS | Encounter Summary ---
Author Name Unknown Organization [facility] Address [address], [place] [address] Care Team Providers Care Engineer Specialist Name Role Phone Janis Beltre MD Primary Care Provider Reason for Visit * Reason Comments VACCINATION Influenza and COVID- 19 06/09/23 Encounter Details Date Type Department Care Team Description 06/12/2023 Telephone [facility] Neurology [address] [facility] [place] [address] Theodora Contreras, AIRPORT ATTENDANT, CORE DROPPER [address] [place], [place] [phone] VACCINATION (Influenza and COVID-19 06/09/23) Social History Tobacco Use Types Packs/Day Years [...] as of this encounter Nursing Notes * Floyd Powers CNA - 06/12/2023 11:30 AM CDT Immunizations updated in pt's chart. * Gato Barker - 06/12/2023 10:57 AM CDT Received fax, vaccination was administered Influenza and COVID-19 06/09/23 Placed fax in providers right fax folder to review Please delete when finished- no need to scan Gato Barker 06/12/2023, 10:57 AM documented in this encounter Plan of Treatment Upcoming Encounters Date Type Department Care Team Description 10/21/2023 10:30 AM CLAY PRODUCTS GLAZER Appointment [facility] Neurology [address] [facility]. [place], [place] [id number] Theodora Contreras, AIRPORT ATTENDANT, CORE DROPPER [address] [place], [place] [phone] documented as of this encounter Visit Diagnoses Not on filedocumented in this encounter Care Teams Engineer Specialist Relationship Specialty Start Date End Date Janis Beltre MD [address] [place] [address] PCP - General Family Practice 09/19/22 documented as of this encounter
--- OUTSIDE RECORDS SUMMARY | 2023-10-03 07:40 | XMS_ITS | Encounter Summary ---
Author Name Unknown Organization [facility] Address [address], [place] [address] Care Team Providers Care Senior Loan Processor Name Role Phone Janis Beltre MD Primary Care Provider Reason for Visit * Reason Comments ROUTINE, FOLLOW-UP Encounter Details Date Type Department Care Team Description 03/20/2023 10:30 AM CDT Office Visit [facility] Neurology [address] [place], [place] [id number] Theodora Contreras, FAGOT HEATER, DIGITAL ASSET MANAGER [address], [place] [id number] Migraine without aura and without status migrainosus, not intractable (Primary Dx); Migraine with aura and without status migrainosus, not intractable; Intermittent headache; Encounter for long-term (current) use of medications [...] Sign Reading Time Taken Comments Blood Pressure 100/68 03/20/2023 10:33 AM CDT Pulse 61 03/20/2023 10:33 AM CDT Temperature - - Respiratory Rate - - Oxygen Saturation - - Inhaled Oxygen Concentration - - Weight - - Height - - Body Mass Index - - documented in this encounter Patient Instructions * Patient Instructions* Theodora Contreras, ROJAS, DIGITAL ASSET MANAGER - 03/20/2023 10:30 AM CDT Thank you for choosing [facility] Department of Neurology for your care! The following instructions are for your information. Please review this sheet carefully and contact us if you have any questions. Follow-up: Please follow-up on Oct 21 at 10:30 AM in the clinic Thank you in advance for arriving to the clinic early enough to be checked in at the neurology department check in desk or please be on the 3rd floor if you are checking in on line on time for our visit so we can spend as much time as possible for your visit. If you arrive at the check in desk in the neurology department 15 minutes or more after the scheduled start time of your visit you may be asked to reschedule your appointment. Please allow at least 45 minutes for follow-up visits . PLEASE NOTE: If you are unable to keep your follow-up appointment, please call at least 24 hours inadvance to let us know so that we may schedule another patient for that time. If you need to cancelyou may call the neurology department or call the [facility] at [phone]. The Appointment Center is open from 7am - 9pm seven days a week for your convenience. Please call the neurology department at [phone] with any concerns regarding your visit today or for any issues as listed below on this follow-up form. If you do not receive a return phone call from us within 4 hours, please call again. Thank you. If you are using [employer] patient services e-mail to communicate please inform us specifically in any e-mail if you want us to CALL YOU by phone instead of responding through [employer] patient services e-mail. Reason for your visit: migraine headaches Diagnosis: Chronic migraine headache with aura Chronic migraine headache without aura. MEDICATION: Continue with the B2 400mg and magnesium every day. Depakote ER: 2 tabs orally once a day (at the same time) for headache prevention. Let us know when you know what pharmacy you will be using and we can send in refills. Common side effects of Depakote ER: tremor of the hands, sometimes drowsiness (taken once a day so may be taken at night). Weight decreased incidence: 6%; Weight increased incidence: 4% to 9%; Loss of appetite incidence: 4% to 12%. It does require blood monitoring before and while on it to monitor blood counts and liver function tests. Women need to avoid when taking Depakote ER as Depakote ER can adversely affect the development of a baby. sumatriptan (Imitrex) 100m tab orally @ onset of headache. May repeat with 1 tab after 2 hrs asneeded. MAX 2 tabs in 24 hrs (TAKE a second dose IF the headache is not completely gone) & MAX use 5-6 days per month. The most common side effects I have seen patients experience are some fatigue after taking it and some chest or throat tightness. This is a fairly common side effect and should not last more than 30-40 minutes. If it does I would recommend you be seen for further evaluation. Overusing a triptan such as sumatriptan can cause a medication overuse headache and have serious cardiovascular side effects . Please follow the directions on your prescription. Please do not use sumatriptan if there is any possibility of as sumatriptan could affect the development of a baby. Taking a triptan medication (sumatriptan) when you are also taking an antidepressant may cause a serotonin syndrome. What is serotonin syndrome? Serotonin syndrome is a serious problem that can causea number of symptoms, including: anxiety, restlessness, or confusion, sweating, muscle spasms and mu scle rigidity, rapid back and forth eye movements, shaking or trembling, fever, rapid heart rate , vomiting, diarrhea. What causes serotonin syndrome? Serotonin syndrome happens to people after they take certain medicines or combinations of medicines. It can also happen with certain herbal productsand street drugs. There are many medicines and drugs that can lead to serotonin syndrome. In general, they all affect a chemical in the brain and body called ???serotonin.?? Please use your sumatriptan use as prescribed. If you develop symptoms of serotonin syndrome as described above after takingsumatriptan, please be seen in the ER. Essential oils (peppermint or lavender) may be helpful when applied along your forehead and templesbut do not get them to close to your eyes and wash your hands after using these. Please schedule the following Referral(s): Acupuncture - if you want a referral for this let us know. Please check with your insurance provider to be certain referrals will be covered. Recommendations: Making and then continuing these behavior changes can result in improvement in your headache management: Computer use: A good rule of thumb for not straining your eyes while at the computer is the 20-20-20 rule. Every 20 minutes look at something 20 feet away for 20 seconds. Other helpful hints are to try blue-light blocking glasses, change the lighting on the computer, adjust computer for a healthy posture, and give yourself time to blink fully as blinking is severely reduced with screen time. Set a timer to take a couple minute break every 30 minutes to close your eyes and stretch your neckand body Exercise : Work on exercising at least 4-5 times per week for a total of 30 minutes each of those 4-5 days. Diet : Eat something with protein in at the start of your day, the middle of your day and towards the end of your day to keep your blood sugars more steady throughout your day. Sources of protein include: eggs, dairy products (including milk, cheese, yogurt), any type of meat (including chicken andfish), nuts, beans (such as black beans, red beans), soy products, tofu. Please follow any dietary restrictions when adding in protein. Caffeine: Continue to avoid caffeine. Hydration: It is important to stay well hydrated through your day with fluids that do not have caffeine or alcohol in them. Dehydration can contribute to headaches occurring. Sleep: Work to keep a stable sleep schedule 7 days a week (going to bed and getting up at the same time every day). Many patients with headaches will notice an increase in their headaches with even asmall change to their sleep pattern. Headache Calendar: Keep track of your headaches on a calendar OR track them on a headache tracker TSERING and bring it with you to all your return appointments. This will allow us to see how changes madein your headache management plan are affecting your headaches. Some APPs my patients like include Migraine Giovanny, Gloria Migraine Management, Headache Diary Pro and Headache Tracker. Toolbox for headache management: There are a number of options for help with managing headaches including non-medication treatments. Some non-medication treatments include: >Acupuncture: many insurances cover acupuncture or there are community acupuncture locations that have lower cost acupuncture. [facility] has [facility] at several clinics including the [facility]. A referral can be entered if you are interested. >Guided imagery / progressive muscle relaxation: There are a number of options online for learning more about this treatment option. eventuosity has information about this option and an exercise specific to headache management called ???Relieve Headaches?? . Other online resources include: Headspace, CALM, Insight Timer. Behavioral health and Occupational Therapy providers can also helpwith these techniques. >Occupational Therapy offers a program that includes a variety of non-medication treatment options. A referral can be entered if you are interested. >Physical Therapy and craniosacral physical therapy can be helpful at improving headache management. A referral can be entered if you are interested. FOLLOW-UP: Please follow-up with Janis Beltre MD / your primary care clinic regarding all other medical issues and concerns. Please call the neurology department at [phone] if you have any questions related to your visit today, new symptoms, worsening symptoms, side effects to your medication that you can not tolerate, concerns that your medication is not working well to control your headaches /symptoms and increased frequency of headaches more than 6 days in a calendar month. Return visit information: Please bring all your medications (including over the counter medications, vitamins and herbal products) with you to all of your visits. Please call at least 24 hours in advance if you are unable to keep your follow-up appointment so that we may schedule another patient for that time. Tell us What You Think We want to ensure that you are completely satisfied with the care you receive from all employees [facility]. Please email us at [email or web address] to let us know what you thoughtof your visit with us today. documented in this encounter Progress Notes * Theodora Contreras APRN, CNP - 03/20/2023 10:30 AM CDT S: Cinthya Wilder is a 37 y.o. female here today for f/u of headache management. Our last visit was a video visit on 09-19-22. She is having a headache not more than 1 migraine every couple months . Migraine headache location is unilateral parietal described as sharper pain. The migraine headache lasts a couple hours Triggers include: dark chocolate (she is cutting down), screens, being low on food and/or water Sumatriptan (100mg 1 at onset of headache, 1 per day using 0-1 day a month) with Ibuprofen (200mg 2tabs) brings a headache from a aura - 3 to a 0-1 after 2 hours. She may have taken a second dose once in the past 6 months and it did help. She will note with more screen time she will have headaches a couple times a week per her recall. Headache location is bioccipital and on the upper frontal towards the vertex described as achy, throbby. The headache lasts 10 minutes if she gets up and moves around . Day of onset of the headachevaries. Triggers: screen time She rates the severity of these headaches a 1-2. AURA: Occurs with 50% of migraine headaches. The aura starts 20-30 minutes before the headache and lasts 20-30 minutes. Aura is described as: starts as a small tiny region near the center of my field of vision where I can't see, an absence of visual information and as it gets bigger it nick and shimmers and jagged patterns and it grows and moves and it recedes . She has c/o nausea, photophobia, and phonophobia with the headache. Denies any other associated symptoms with the headache including denying diplopia, loss of vision, vomiting, jaw pain , paresthesias , weakness , dizziness , and neck pain . She is taking B2 400mg a day (currently out it) and magnesium 250mg 1 a day. Taking Depakote ER 500mg 2 tabs per day and is tolerating the side effects. She has not been notingshe is having a lot of tremor. She feels the Depakote ER has helped. ROS: She found out this morning she has parasites from a trip up at [place]. She will be given antibiotics . Using IUD for contraception. She is not planning to get . 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 Sheand her partner are going to live with her sister in [place] for the year she is on sabbatical. She will be on sabbatical for a year starting Fall 2022. She is not going to teach at all next year. She will be doing research and professional development. Allergies: Patient has no known allergies. Medications: B Complex Vitamins (B COMPLEX OR), daily., Disp: , Rfl: cholecalciferol (VITAMIN D3) 50 MCG (2000 UT) capsule, Take 1 Capsule (2,000 Units) by mouth daily., Disp: , Rfl: citalopram (CELEXA) 40 MG tablet, Take 1 Tablet (40 mg) by mouth daily. (Patient taking differently: Take 1 Tablet (40 mg) by mouth daily. She reports on 05/02/2022 taking .75 tablets of a 40mg dose.),Disp: 90 Tablet, Rfl: 3 clindamycin (CLEOCIN T) 1 % lotion, Apply topically daily., Disp: 60 mL, Rfl: 11 dapsone (ACZONE) 5 % gel, Apply topically daily at bedtime., Disp: 60 g, Rfl: 11 divalproex (DEPAKOTE ER) 500 MG 24 hour release tablet, TAKE 2 TABLETS BY MOUTH EVERY DAY FOR HEADACHE PREVENTION, Disp: 180 Tablet, Rfl: 0 ferrous gluconate 324 (37.5 FE) MG tablet, Take 1 Tablet (324 mg) by mouth daily., Disp: , Rfl: ibuprofen (MOTRIN) 200 MG tablet, 2 at onset of headache with Sumatriptan, Disp: , Rfl: magnesium oxide (AKA MAG-OX 400) 250 MG tablet, daily with breakfast., Disp: , Rfl: Hancock-3 Fatty Acids (FISH OIL) 1200 MG capsule, Take 1 Capsule (1,200 mg) by mouth. She takes 2 caps once a day, Disp: , Rfl: Riboflavin (B-2-400 OR), 1 a day, Disp: , Rfl: SUMAtriptan (IMITREX) 100 MG tablet, TAKE 1 TABLET NEEDED FOR MIGRAINE. MAY REPEAT ONE TIME AFTER 2 HOURS NEEDED. MAX 2 TABLETS PER 24 HOURS AND 9 DAYS PER MONTH, Disp: 9 Tablet, Rfl: 12 O: BP 100/68 (BP Location: Left Arm, BP Cuff Size: Regular) Pulse 61 Constitutional: Patient appears stated age and in no acute distress. Mental Status: Alert and oriented x 3. Cooperative with good attention span and concentration. Speech normal and fluent. Cranial nerves: EOMs full, no nystagmus or ptosis noted. No facial asymmetry or paresis noted. Hearing intact to my normal voice tones. Neck: Fairly full neck range of motion without c/o pain. Neck is supple. No c/o pain with palpationalong the posterior aspect of the head bilaterally. Notes some tightness with palpation along the posterior neck bilaterally and into her upper trapezius muscles bilaterally Motor: No palmar drift. No tremor noted of hands outstretched. Gait, Coordination: Casual and tandem gaits are smooth. Negative Romberg. Bqemhk-dx-msog test accurate bilaterally. Respiration: No cough or obvious shortness of breath noted during our visit. She is speaking in full sentences. A: 1. Migraine headache without aura. Previous medication trials include:B2, magnesium,Cafergot, Maxalt (10mg), Imitrex (100mg), Ibuprofen 2. Migraine headache with aura 3. Intermittent headache she notes is triggered by more screen time P: 1.Continue with the B2 400mg and magnesium every day. 2. Depakote ER: 2 tabs orally once a day (at the same time) for headache prevention. Let us know when you know what pharmacy you will be using and we can send in refills. Common side effects of Depakote ER: tremor of the hands, sometimes drowsiness (taken once a day so may be taken at night). Weight decreased incidence: 6%; Weight increased incidence: 4% to 9%; Loss of appetite incidence: 4% to 12%. It does require blood monitoring before and while on it to monitor blood counts and liver function tests. Women need to avoid when taking Depakote ER as Depakote ER can adversely affect the development of a baby. 3. sumatriptan (Imitrex) 100m tab orally @ onset of headache. May repeat with 1 tab after 2 hrsas needed. MAX 2 tabs in 24 hrs (TAKE a second dose IF the headache is not completely gone) & MAX use 5-6 days per month. The most common side effects I have seen patients experience are some fatigue after taking it and some chest or throat tightness. This is a fairly common side effect and should not last more than 30-40 minutes. If it does I would recommend you be seen for further evaluation. Overusing a triptan such as sumatriptan can cause a medication overuse headache and have serious cardiovascular side effects . Please follow the directions on your prescription. Please do not use sumatriptan if there is any possibility of as sumatriptan could affect the development of a baby. 4. We discussed setting a timer to take a physical break every 30 minutes when on the computer, continuing to wear her blue light glasses and using the light filter on the computer 5. F/U with Janis Beltre MD regarding all other medical issues. 6. Call with questions, changes, problems or increased headache more than 5 days in a month and follow-up in October and . 7. Please see After Visit Summary for additional instructions given. I requested nurse receptionist fax a copy of this note to Janis Beltre MD [phone] Time spent with Cinthya Wilder in face to face contact for the visit and exam, discussing the diagnosis and treatment plan, answering questions, review of the electronic medical record, coordinating care and documentation: 40 minutes Theodora Contreras APRN, CNP This note was created using speech-recognition software and may contain unintended word substitutions. documented in this encounter Plan of Treatment Upcoming Encounters Date Type Department Care Team Description 10/21/2023 10:30 AM PUBLIC ADDRESS SYSTEM OPERATOR Appointment [facility] Neurology [address] [address] Theodora Contreras APRN, CNP [address] [place] [address] documented as of this encounter Results * Ammonia (03/20/2023 11:26 AM CDT) Ammonia, Blood 29 18 - 72 umol/L 03/20/2023 2:14 PM CDT [facility] Blood Venipuncture / Unknown 03/20/2023 11:26 AM CDT 03/20/2023 11:26 AM CDT Theodora Sarah Ben XIE CNP LAB_[address] [address], [facility] [phone] * Valproic Acid (Depakene) Level (03/20/2023 11:26 AM CDT) Valproic Acid 81 50 - 100 mcg/mL 03/20/2023 1:31 PM CDT [facility] Blood Venipuncture / Unknown 03/20/2023 11:26 AM CDT 03/20/2023 11:26 AM CDT Theodora Contreras APRN, CNP LAB_1 Performing Organization Address [facility]/ZIP Co de Phone Number [address] [address], [facility] [phone] * AST (03/20/2023 11:26 AM CDT) AST (SGOT) 17 10 - 40 U/L 03/20/2023 2:30 PM CDT [facility] Blood Venipuncture / Unknown 03/20/2023 11:26 AM CDT 03/20/2023 11:26 AM CDT Theodora Contreras APRN, CNP LAB_1 Performing Organization Address City/[facility]/ZIP Co de Phone Number [facility] [address] [address], [facility] [phone] * ALT (SGPT) (03/20/2023 11:26 AM CDT) ALT (SGPT) 23 <=55 U/L 03/20/2023 2:30 PM CDT [id number] Blood Venipuncture / Unknown 03/20/2023 11:26 AM CDT 03/20/2023 11:26 AM CDT Theodora Contreras FAGOT HEATER, DIGITAL ASSET MANAGER LAB_1 Performing Organization Address City/State/[facility] Co de Phone Number [facility] [id number] [phone] documented in this encounter Visit Diagnoses Diagnosis Migraine without aura and without status migrainosus, not intractable- Primary Migraine without aura, without mention of intractable migraine without mention of status migrainosus Migraine with aura and without status migrainosus, not intractable Migraine with aura, without mention of intractable migraine without mention of status migrainosus Intermittent headache Encounter for long-term (current) use of medications Encounter for long-term (current) use of other medications documented in this encounter Care Teams Senior Loan Processor Relationship Specialty Start Date End Date Janis Beltre MD [address] [place] [address] PCP - General Family Practice 09/19/22 documented as of this encounter
--- NOTE | 2023-10-03 09:05 | W.ANESCHARGE ---
Anesthesia Charges Start Date/Time Anesthesia Start Date: 10/03/23 Anesthesia Start Time: 08:14 Stop Date/Time Anesthesia Stop Date: 10/03/23 Anesthesia Stop Time: 08:58
== END 2023-10-03 07:38 | disposition home or self-care (01) ==
LOC: OP CLINIC 07:37
PROVIDERS: PCP Family Medicine; Visit Provider Internal Medicine
DX: Z12.11 Encounter for screening for malignant neoplasm of colon (principal); Z83.710 Family history of adenomatous and serrated polyps; Z80.0 Family history of malignant neoplasm of digestive organs
CPT/HCPCS: 00812; 45378; J2704

== ENCOUNTER 2024-10-29 07:44 | Outpatient (CLI) | payer BC, SELFPAY | END 2024-10-29 07:45 | disposition home or self-care (01) | LOC: NFLDREF 11-01 01:47 | PROVIDERS: PCP Family Medicine; Referring Provider Family Medicine; Visit Provider Family Medicine | DX: Z13.0 Encounter for screening for diseases of the blood and blood-forming organs and certain disorders involving the immune mechanism (principal); E78.5 Hyperlipidemia, unspecified; Z86.2 Personal history of diseases of the blood and blood-forming organs and certain disorders involving the immune mechanism | CPT/HCPCS: 80053; 80061; 82728 ==